=== PATIENT | female | born 1995 | race Two or more races ===

== ENCOUNTER 2022-10-03 19:37 | Emergency (ER) | payer OTHER ==
[~2022-10-03] VITALS: Ht 162.6 cm; Wt 61.0 kg
[2022-10-03 22:55] LABS: BASOPHILS % (AUTO) 0.5 % (0.0-2.0); EOSINOPHILS % (AUTO) 1.3 % (1.0-6.0); HEMATOCRIT 39.7 % (36-46); LYMPHOCYTES # (AUTO) 2.6 K/uL (1.0-4.8); LYMPHOCYTES % (AUTO) 34.4 % (22.0-44.0); MEAN CORPUSCULAR HEMOGLOBIN 31.7 pg (26.0-34.0); MEAN CORPUSCULAR HGB CONC 32.7 G/dL (31.0-37.0); MEAN CORPUSCULAR VOLUME 97 fL (80-100); MONOCYTES # (AUTO) 0.5 K/uL (0.1-1.0); MONOCYTES % (AUTO) 6.7 % (2.0-9.0); NEUTROPHILS # (AUTO) 4.3 K/uL (1.8-7.7); NEUTROPHILS % (AUTO) 57.1 % (40.0-70.0); PLATELET COUNT (AUTO) 224 K/uL (150-450); RED CELL DISTRIBUTION WIDTH 13.8 % (11.5-14.5)
[2022-10-03 23:09] LABS: ANION GAP 8 mmol/L (8-16); CALCIUM, TOTAL 9.1 mg/dL (8.8-10.5); CARBON DIOXIDE 28 mmol/L (22-29); CHLORIDE 100 mmol/L (98-107); CREATININE 0.76 mg/dL (0.60-1.30); GLOMERULAR FILTR. RATE CALC > 60 mL/min (>60); GLUCOSE,RANDOM 88 mg/dL (70-110); POTASSIUM 4.1 mmol/L (3.5-5.1); SODIUM SERUM 136 mmol/L (136-145)
[2022-10-03 23:16] LABS: B-TYPE NATRIURETIC PEPTIDE 14 pg/mL (0-100)
[2022-10-03 23:34] LABS: ALANINE AMINOTRANSFERASE 19 U/L (12-78); ALBUMIN 4.2 g/dL (3.4-5.0); ALKALINE PHOSPHATASE 58 U/L (46-116); ASPARTATE AMINOTRANSFERASE 21 U/L (15-37); BILIRUBIN,TOTAL 0.3 mg/dL (0.1-1.0); CREATINE KINASE, TOTAL ONLY 82 U/L (26-192); TOTAL PROTEIN, SERUM 8.2 g/dL (6.4-8.2)
[2022-10-03 23:58] VITALS: BP 117/73; PULSE 69; RESP 18; TEMP 97.3
== END 2022-10-04 00:05 | disposition home or self-care (01) ==
LOC: EMS 19:39
DX: R07.89 Other chest pain (principal); Z87.891 Personal history of nicotine dependence; Z88.0 Allergy status to penicillin
CPT/HCPCS: 71045; 80053; 82550; 83880; 84484; 84703; 85025; 93005; 99285; 36415-L1; 36415-TC

== ENCOUNTER 2025-01-23 23:04 | Emergency (ER) | payer OTHER ==
[~2025-01-23] VITALS: Ht 160 cm; Wt 52.3 kg
[2025-01-23 23:35] VITALS: BP 133/74; PULSE 67; RESP 18; TEMP 98.1; O2SAT 98
== END 2025-01-24 01:45 | disposition left against medical advice (07) ==
LOC: EMS 23:05
DX: E16.2 Hypoglycemia, unspecified (principal)
CPT/HCPCS: 82962; 99281; Z7502